=== PATIENT | male | born 1980 | race Caucasian/White ===

== ENCOUNTER 2021-12-07 23:16 | Emergency (ER) | payer MEDICAID ==
[~2021-12-07] VITALS: Ht 170.2 cm; Wt 99.8 kg
[2021-12-07 23:36] VITALS: BP_SYST 123
--- NOTE | 2021-12-07 23:40 | NUR ---
PT HERE C/O DYUSURIA, URINARY FREQUENCY AND BLOD IN URINE SINCE THIS MORNING. PT STATES THAT HE HAD FEVER THIS MORNING. +LOWER BACK AND LOWER ABD PAIN. DENIES N/V/D. PT AAOX4, NO SOB NOTED AND NOT IN ANY DISTRESS AT THIS TIME
--- NOTE | 2021-12-07 23:50 | NUR ---
Patient to ER bed 01 to gown for evaluation. Side rails up.
[2021-12-08 00:20] LABS: BILIRUBIN,URINE NEGATIVE (NEGATIVE); BLOOD, URINE 3+ (NEGATIVE); CLARITY/URINE HAZY (CLEAR); COLOR,URINE YELLOW (YELLOW); GLUCOSE,URINE NEGATIVE (NEGATIVE); KETONES,URINE 1+ (NEGATIVE); LEUKOCYTE ESTERASE ,URINE 2+ (NEGATIVE); NITRITE, URINE POSITIVE (NEGATIVE); PROTEIN URINE TRACE (NEGATIVE); UROBILINOGEN,URINE 0.2 (0.2-1.0)
[2021-12-08 00:25] LABS: RBC,URINE 20-50 /HPF (0-3); WBC,URINE 50-80 /HPF (0-3)
[2021-12-08 00:26] LABS: BACTERIA,URINE MANY /HPF (None Seen); MUCUS,URINE None Seen /LPF (None Seen)
--- NOTE | 2021-12-08 00:40 | NUR ---
ER at bedside examining patient.
[2021-12-08] MEDS ORDERED: CIPR500T5 PO (00:44)
[2021-12-08] MEDS ORDERED: cefTRIAXone 1 GM in LIDOCAINE 1%, 20 ML MDV 2.1 ML IM ONE (00:45)
[2021-12-08 00:50] VITALS: BP_SYST 126
--- NOTE | 2021-12-08 00:50 | NUR ---
Patient given written and verbal discharge instructions and verbalizes understanding. ER MD discussed with patient the results and treatment provided. Patient in stable condition. ID arm band removed. Rx of cipro given. Patient educated on pain management and to follow up with PMD. Pain Scale 0/10 Opportunity for questions provided and answered. Medication side effect fact sheet provided.
== END 2021-12-08 00:50 | disposition home or self-care (01) ==
LOC: SED 23:16
DX: N39.0 Urinary tract infection, site not specified (principal); R30.0 Dysuria; R35.0 Frequency of micturition; Z79.899 Other long term (current) drug therapy
CPT/HCPCS: 99283; 81000; 87086; 96372; J0696; J2001